=== PATIENT | male | born 1995 | race Caucasian/White ===

== ENCOUNTER 2016-08-05 11:11 | Inpatient (IN) | payer OTHER ==
[~2016-08-05] VITALS: Ht 180.3 cm; Wt 83.9 kg
[2016-08-05 13:07] LABS: BILIRUBIN NEGATIVE (NEGATIVE); BLOOD NEGATIVE (NEGATIVE); CLARITY SL CLOUDY (CLEAR); COLOR YELLOW (YELLOW); GLUCOSE NEGATIVE (NEGATIVE); KETONE TRACE (NEGATIVE); LEUKO ESTERASE NEGATIVE (NEGATIVE); NITRITE NEGATIVE (NEGATIVE); PROTEIN NEGATIVE (NEGATIVE); UROBILINOGEN >= 8.0 E.U./dl (0.2-1.0)
[2016-08-05 13:09] LABS: BASO % 0.3 % (0.0-1.0); EOS # 0.2 10*3/uL (0.0-0.4); EOS % 3.9 % (1.0-4.0); HEMATOCRIT 42.3 % (42.0-52.0); HEMOGLOBIN 14.5 g/dl (14.0-18.0); LYMPH # 1.4 10*3/uL (1.3-4.4); LYMPH % 22.8 % (27.0-41.0); MEAN CELL VOLUME 88.5 fl (80.0-94.0); MEAN CORPUSCULAR HGB 30.3 pg (27.0-31.0); MEAN CORPUSCULAR HGB CONC 34.3 g/dl (33.0-37.0); MEAN PLATELET VOLUME 9.8 fl (9.6-12.3); MONO # 0.6 10*3/uL (0.1-1.0); NEUT # 3.9 10*3/uL (2.3-7.9); NEUT % 63.3 % (47.0-73.0); PLATELET COUNT AUTOMATED 193 10*3/uL (130-400); RED BLOOD COUNT 4.78 10*6/uL (4.50-5.90); RED CELL DISTRI WIDTH 12.9 % (0-14.5); WHITE BLOOD COUNT 6.1 10*3/uL (4.8-10.8)
[2016-08-05 13:19] LABS: ALBUMIN 3.8 gm/dl (3.1-4.5); ALKALINE PHOSPHATASE 105 U/L (45-117); BILIRUBIN, TOTAL 0.9 mg/dl (0.2-1.0); BUN 9 mg/dl (7-24); CARBON DIOXIDE 27 mmol/L (21-32); CHLORIDE 102 mmol/L (98-107); EST GLOM FILT AFRICAN AMERICAN > 60 ml/min; GLUCOSE 102 mg/dL (65-99); POTASSIUM 4.6 mmol/L (3.5-5.1); SGOT/AST 100 IU/L (3-35); SGPT/ALT 173 U/L (12-78); SODIUM 139 mmol/L (136-145); TOTAL PROTEIN 7.9 gm/dL (6.4-8.2)
[2016-08-05 13:22] LABS: BACTERIA 4+; EPITHELIAL CELLS 0-2; URINE REFLEX COMMENT YES (NO)
[2016-08-05 13:25] LABS: URINE AMPHETAMINES < 1000 (1000ng/ml); URINE BARBITURATES < 200 (200ng/ml); URINE COCAINE > 300 (300ng/ml)
[2016-08-08 06:57] LABS: BASO % 0.5 % (0.0-1.0); EOS # 0.6 10*3/uL (0.0-0.4); EOS % 7.5 % (1.0-4.0); HEMATOCRIT 43.3 % (42.0-52.0); HEMOGLOBIN 14.9 g/dl (14.0-18.0); LYMPH % 39.3 % (27.0-41.0); MEAN CELL VOLUME 86.6 fl (80.0-94.0); MEAN CORPUSCULAR HGB 29.8 pg (27.0-31.0); MEAN CORPUSCULAR HGB CONC 34.4 g/dl (33.0-37.0); MEAN PLATELET VOLUME 9.8 fl (9.6-12.3); MONO # 0.8 10*3/uL (0.1-1.0); MONO % 10.2 % (3.0-9.0); NEUT # 3.2 10*3/uL (2.3-7.9); PLATELET COUNT AUTOMATED 237 10*3/uL (130-400); RED CELL DISTRI WIDTH 13.1 % (0-14.5); WHITE BLOOD COUNT 7.6 10*3/uL (4.8-10.8)
[2016-08-08 07:32] LABS: EST GLOM FILT AFRICAN AMERICAN > 60 ml/min
[2016-08-08] MEDS ORDERED: ATARAX,VISTARIL50 MG PO (09:10)
[2016-08-08] MEDS ORDERED: METHOCARBAMOL750 M1 PO (09:10)
[2016-08-08] MEDS ORDERED: DICYCLOMINE HCL20 MG PO (09:10)
[2016-08-08] MEDS ORDERED: SEPTRA DS 800 M1 TAB PO (09:10)
[2016-08-08] MEDS ORDERED: ZOFRAN 4 MG ED2 TAB PO (09:10)
[2016-08-08] MEDS ORDERED: LORAZEPAM1 MG PO (09:25)
== END 2016-08-08 10:28 | disposition home or self-care (01) | DRG 897 ==
LOC: 5E 11:11
PROVIDERS: Internal Medicine; Student in an Organized Health Care Education/Training Program
DX: F11.23 Opioid dependence with withdrawal (principal); F10.232 Alcohol dependence with withdrawal with perceptual disturbance; N39.0 Urinary tract infection, site not specified; L02.413 Cutaneous abscess of right upper limb; L03.113 Cellulitis of right upper limb; G25.81 Restless legs syndrome; F14.10 Cocaine abuse, uncomplicated; F19.980 Other psychoactive substance use, unspecified with psychoactive substance-induced anxiety disorder; F17.210 Nicotine dependence, cigarettes, uncomplicated; B19.20 Unspecified viral hepatitis C without hepatic coma; R79.89 Other specified abnormal findings of blood chemistry; R82.71 Bacteriuria